=== PATIENT | male | born 1990 | race Two or more races ===

== ENCOUNTER 2023-11-23 16:55 | Emergency (ER) | payer MEDICAID, OTHER ==
[~2023-11-23] VITALS: Ht 172.7 cm; Wt 95.3 kg
[~2023-11-23 16:55] MED LIST: HYDR25TA5 PO
[2023-11-23 18:41] VITALS: BP 145/86; PULSE 88; RESP 18; TEMP 97.9; O2SAT 98
== END 2023-11-23 18:43 | disposition home or self-care (01) ==
LOC: EDBD 16:55 → ER 16:55
DX: S80.02XA Contusion of left knee, initial encounter (principal); K80.20 Calculus of gallbladder without cholecystitis without obstruction; V89.2XXA Person injured in unspecified motor-vehicle accident, traffic, initial encounter; Y93.89 Activity, other specified; Y92.89 Other specified places as the place of occurrence of the external cause; Y99.0 Civilian activity done for income or pay
CPT/HCPCS: 73562